=== PATIENT | male | born 1945 ===

== ENCOUNTER 2023-10-04 11:59 | Day surgery (SDC) | payer MEDICARE ==
[2023-10-04] MEDS: Polymyxin B/Trimethoprim 10 ML Bottle EYERT SCH (12:32)
[2023-10-04] MEDS: Brimonidine 0.2% Ophth Soln 5 ML Bottle EYERT SCH (12:35)
[2023-10-04] MEDS: Phenylephrine 2.5% Ophth Soln 2 ML Bot EYERT SCH (12:40)
[2023-10-04] MEDS: Tropicamide 1% Ophth Soln 3 ML Bottle EYERT SCH (12:45)
[2023-10-04] MEDS: Tetracaine HCl/PF 0.5% 4 ML Bottle EYEBOTH SCH (13:36)
[2023-10-04] MEDS: Lidocaine 1% PF 2 ML SDV INJECT SCH (13:59)
[2023-10-04] MEDS: Cefuroxime 10 MG/ML SYRINGE EYERT SCH (14:10)
[2023-10-04] MEDS: Pilocarpine 4% Ophth Soln 15 ML Bot EYERT SCH (14:11)
== END 2023-10-04 14:26 | disposition home or self-care (01) ==
LOC: JD.SDS 11:59
PROVIDERS: ATTEND Ophthalmology
DX: H25.813 Combined forms of age-related cataract, bilateral (principal); E78.00 Pure hypercholesterolemia, unspecified; I10 Essential (primary) hypertension; Z79.899 Other long term (current) drug therapy; Z98.890 Other specified postprocedural states
CPT/HCPCS: 66984; A9270; J0697; 00142; 99100; J3490; V2788-GY